=== PATIENT | male | born 1940 | race Native Hawaiian/Other Pacific Islander ===

== ENCOUNTER 2016-11-30 22:30 | Emergency (ER) | payer OTHER ==
[~2016-11-30] VITALS: Ht 177.8 cm; Wt 129.3 kg
[2016-11-30] MEDS ORDERED: LIPITOR40 MG PO (23:14)
[2016-11-30] MEDS ORDERED: AMLO2.5T PO (23:15)
[2016-11-30] MEDS ORDERED: ASPIRIN LOW81 MG PO (23:16)
[2016-11-30] MEDS ORDERED: CARV6.25 PO ×2 (23:16→23:18)
[2016-11-30] MEDS ORDERED: LISI20TA11 PO (23:17)
[2016-11-30] MEDS ORDERED: PROSCAR5 MG PO (23:17)
[2016-12-01 00:44] LABS: PLATELET COUNT 199 K/uL (142-355)
[2016-12-01 00:50] LABS: POTASSIUM 3.1 mmol/L (3.6-5.2); SODIUM 140 mmol/L (136-145)
[2016-12-01 02:39] VITALS: BP 175/98; TEMP 98.5
== END 2016-12-01 02:40 | disposition home or self-care (01) ==
LOC: ED 22:30
DX: L03.115 Cellulitis of right lower limb (principal); I89.0 Lymphedema, not elsewhere classified
CPT/HCPCS: 36415; 80053; 81000; 84550; 85027; 87040; 96372; 99284; J0696

== ENCOUNTER 2017-01-18 18:54 | Emergency (ER) | payer OTHER ==
[~2017-01-18] VITALS: Ht 177.8 cm; Wt 129.3 kg
[~2017-01-18 18:54] MED LIST: AMLO2.5T PO; ASPIRIN LOW81 MG PO; CARV6.25 PO; LIPITOR40 MG PO; LISI20TA11 PO; PROSCAR5 MG PO
[2017-01-18 19:33] LABS: PLATELET COUNT 179 K/uL (142-355)
[2017-01-18 19:40] LABS: POTASSIUM 4.5 mmol/L (3.6-5.2); SODIUM 132 mmol/L (136-145)
[2017-01-18 20:10] VITALS: BP 152/71; TEMP 98
== END 2017-01-18 20:10 | disposition short-term general hospital (02) ==
LOC: ED 18:54
DX: I21.19 ST elevation (STEMI) myocardial infarction involving other coronary artery of inferior wall (principal); E11.9 Type 2 diabetes mellitus without complications
CPT/HCPCS: 36415; 51702; 80053; 82550; 83036; 83880; 84484; 85027; 85610; 93005; 96374; 96375; 99285; J2270; J2930

== ENCOUNTER 2018-11-29 01:18 | Inpatient (IN) | payer OTHER ==
[~2018-11-29] VITALS: Ht 177.8 cm; Wt 121.3 kg
[2018-11-29 01:39] VITALS: BP 179/71; TEMP 98.1
[2018-11-29 02:29] LABS: PLATELET COUNT 202 K/uL (142-355)
[2018-11-29 03:06] LABS: POTASSIUM 3.4 mmol/L (3.6-5.2)
[2018-11-29 05:17] VITALS: BP 162/69; TEMP 97.9; Ht 177.8 cm; Wt 121.3 kg
[2018-11-29 08:11] VITALS: BP 179/72; TEMP 97.6
[2018-11-29] MEDS ORDERED: IPRAAER INH (09:47)
[2018-11-29] MEDS ORDERED: OMEPRAZOLE20 M1 PO (09:48)
[2018-11-29] MEDS ORDERED: BUMETANIDE1 MG PO (09:49)
[2018-11-29 12:05] VITALS: BP 154/77; TEMP 98.1
[2018-11-29 12:13] LABS: POTASSIUM 3.6 mmol/L (3.6-5.2)
[2018-11-29 16:00] VITALS: BP 161/70; TEMP 98.2
== END 2018-11-29 19:57 | disposition short-term general hospital (02) | DRG 291 ==
LOC: ED 01:18 → MED/SURG 03:25
PROVIDERS: ADMIT Internal Medicine
DX: I13.0 Hypertensive heart and chronic kidney disease with heart failure and stage 1 through stage 4 chronic kidney disease, or unspecified chronic kidney disease (principal); I50.33 Acute on chronic diastolic (congestive) heart failure; E11.22 Type 2 diabetes mellitus with diabetic chronic kidney disease; N18.3 Chronic kidney disease, stage 3 (moderate); E78.49 Other hyperlipidemia; E83.42 Hypomagnesemia; N40.0 Benign prostatic hyperplasia without lower urinary tract symptoms; E87.6 Hypokalemia
CPT/HCPCS: 36415; 36600; 80053; 81000; 82550; 82553; 82805; 83036; 83605; 83615; 83735; 83880; 84443; 84484; 85027; 93005; 94760; 96374; 99284; J1650; J1940; J3475

== ENCOUNTER 2018-11-29 19:55 | Outpatient (CLI) | payer OTHER ==
[~2018-11-29 19:55] MED LIST changes: +BUMETANIDE1 MG PO; +IPRAAER INH; +OMEPRAZOLE20 M1 PO
== END 2018-11-29 20:44 | disposition short-term general hospital (02) ==
LOC: AMB 19:55
DX: I13.0 Hypertensive heart and chronic kidney disease with heart failure and stage 1 through stage 4 chronic kidney disease, or unspecified chronic kidney disease (principal); I50.33 Acute on chronic diastolic (congestive) heart failure; E11.22 Type 2 diabetes mellitus with diabetic chronic kidney disease; N18.3 Chronic kidney disease, stage 3 (moderate); E78.49 Other hyperlipidemia; E83.42 Hypomagnesemia; N40.0 Benign prostatic hyperplasia without lower urinary tract symptoms; E87.6 Hypokalemia
CPT/HCPCS: A0425; A0427

== ENCOUNTER 2019-02-05 22:42 | Outpatient (CLI) | payer OTHER ==
[2019-02-06 09:35] LABS: POTASSIUM 3.7 mmol/L (3.6-5.2)
== END 2019-02-05 23:40 | disposition home or self-care (01) ==
LOC: LAB 22:42
PROVIDERS: Internal Medicine
DX: J44.9 Chronic obstructive pulmonary disease, unspecified (principal); J45.998 Other asthma; I48.1 Persistent atrial fibrillation; I50.22 Chronic systolic (congestive) heart failure
CPT/HCPCS: 80048; 83735

== ENCOUNTER 2019-02-14 18:22 | Outpatient (CLI) | payer OTHER ==
[2019-02-14] MEDS ORDERED: CARV25TA PO (19:00)
[2019-02-14] MEDS ORDERED: ELIQUIS5 MG PO (19:00)
[2019-02-14] MEDS ORDERED: AMLODIPINE BESYLATE PO (19:00)
[2019-02-14] MEDS ORDERED: MULTIVITAMI1 PO (19:01)
[2019-02-14] MEDS ORDERED: HUMALOG KW100 UNIT/M SC (19:03)
== END 2019-02-14 18:30 | disposition short-term general hospital (02) ==
LOC: AMB 18:22
DX: R06.02 Shortness of breath (principal)
CPT/HCPCS: A0425; A0427

== ENCOUNTER 2019-02-14 18:36 | Emergency (ER) | payer OTHER ==
[~2019-02-14] VITALS: Ht 177.8 cm; Wt 121.1 kg
[2019-02-14 18:38] VITALS: TEMP 98
[2019-02-14] MEDS ORDERED: AMLODIPINE BESYLATE PO (19:00)
[2019-02-14] MEDS ORDERED: ELIQUIS5 MG PO (19:00)
[2019-02-14] MEDS ORDERED: CARV25TA PO (19:00)
[2019-02-14] MEDS ORDERED: MULTIVITAMI1 PO (19:01)
[2019-02-14] MEDS ORDERED: HUMALOG KW100 UNIT/M SC (19:03)
[2019-02-14 19:18] LABS: PLATELET COUNT 144 K/uL (142-355)
[2019-02-14 21:20] VITALS: BP 132/70
== END 2019-02-14 21:59 | disposition short-term general hospital (02) ==
LOC: ED 18:36
PROVIDERS: Emergency Medicine
DX: I50.9 Heart failure, unspecified (principal); J18.8 Other pneumonia, unspecified organism
CPT/HCPCS: 36415; 80053; 82550; 83605; 83735; 83880; 84484; 85027; 87040; 93005; 94664; 96365; 96375; 99285; J1940; J3475

== ENCOUNTER 2019-02-14 22:03 | Outpatient (CLI) | payer OTHER ==
[~2019-02-14 22:03] MED LIST changes: +AMLODIPINE BESYLATE PO; +CARV25TA PO; +ELIQUIS5 MG PO; +HUMALOG KW100 UNIT/M SC; +MULTIVITAMI1 PO
== END 2019-02-14 22:45 | disposition short-term general hospital (02) ==
LOC: AMB 22:03
DX: I50.9 Heart failure, unspecified (principal); J16.8 Pneumonia due to other specified infectious organisms
CPT/HCPCS: A0425; A0427

== ENCOUNTER 2019-04-07 12:23 | Outpatient (CLI) | payer OTHER ==
[2019-04-07 12:56] LABS: PLATELET COUNT 201 K/uL (142-355)
[2019-04-07 13:06] LABS: POTASSIUM 2.6 mmol/L (3.6-5.2)
== END 2019-04-07 19:19 | disposition home or self-care (01) ==
LOC: LABW 12:23
PROVIDERS: Internal Medicine
DX: I10 Essential (primary) hypertension (principal); E78.49 Other hyperlipidemia; E11.9 Type 2 diabetes mellitus without complications
CPT/HCPCS: 36415; 80053; 80061; 81000; 83036; 84439; 84443; 85027

== ENCOUNTER 2019-04-28 11:38 | Outpatient (CLI) | payer OTHER ==
[2019-04-28 11:54] LABS: POTASSIUM 2.9 mmol/L (3.6-5.2)
== END 2019-04-28 23:42 | disposition home or self-care (01) ==
LOC: LAB 11:38
PROVIDERS: Internal Medicine
DX: J44.1 Chronic obstructive pulmonary disease with (acute) exacerbation (principal); I13.0 Hypertensive heart and chronic kidney disease with heart failure and stage 1 through stage 4 chronic kidney disease, or unspecified chronic kidney disease; I50.9 Heart failure, unspecified
CPT/HCPCS: 80048; 83735

== ENCOUNTER 2019-06-29 11:47 | Outpatient (CLI) | payer OTHER | END 2019-06-29 11:54 | disposition short-term general hospital (02) | LOC: AMB 11:47 | DX: R05 Cough (principal); R09.89 Other specified symptoms and signs involving the circulatory and respiratory systems | CPT/HCPCS: A0425; A0429 ==

== ENCOUNTER 2019-06-29 11:59 | Emergency (ER) | payer OTHER ==
[~2019-06-29] VITALS: Ht 177.8 cm; Wt 109.3 kg
[2019-06-29 12:22] LABS: PLATELET COUNT 221 K/uL (142-355)
[2019-06-29 12:49] LABS: PARTIAL THROMBOPLASTIN TIME 28.8 SECONDS (24.5-33.6)
[2019-06-29 12:58] LABS: POTASSIUM 2.3 mmol/L (3.6-5.2)
[2019-06-29 15:20] VITALS: BP 125/65; TEMP 98.1
== END 2019-06-29 15:25 | disposition home or self-care (01) ==
LOC: ED 11:59
PROVIDERS: Hospitalist
DX: J40 Bronchitis, not specified as acute or chronic (principal); I50.9 Heart failure, unspecified; E87.6 Hypokalemia; I48.91 Unspecified atrial fibrillation; F17.220 Nicotine dependence, chewing tobacco, uncomplicated
CPT/HCPCS: 36415; 80053; 81000; 82550; 83880; 84484; 85027; 85610; 85730; 93005; 94664; 96365; 96375; 99284; J0456; J1940; J2930

== ENCOUNTER 2020-01-23 20:13 | Emergency (ER) | payer OTHER ==
[~2020-01-23] VITALS: Ht 177.8 cm; Wt 99.8 kg
[2020-01-23 20:13] VITALS: TEMP 99.3
[2020-01-23 21:03] LABS: PLATELET COUNT 172 K/uL (142-355)
[2020-01-23 21:14] LABS: POTASSIUM 4.7 mmol/L (3.6-5.2)
[2020-01-23 23:32] VITALS: BP 119/62
== END 2020-01-23 23:37 | disposition short-term general hospital (02) ==
LOC: ED 20:13
PROVIDERS: Family Medicine
PROC: 0T9B70Z Drainage of Bladder with Drainage Device, Via Natural or Artificial Opening (ICD-10-PCS; principal; 2020-01-23)
DX: I50.9 Heart failure, unspecified (principal); R79.89 Other specified abnormal findings of blood chemistry; E11.65 Type 2 diabetes mellitus with hyperglycemia; I48.91 Unspecified atrial fibrillation; I45.19 Other right bundle-branch block
CPT/HCPCS: 51702; 80053; 81000; 82550; 83880; 84484; 85027; 87502; 93005; 96374; 99285; J1940

== ENCOUNTER 2020-03-01 17:20 | Inpatient (IN) | payer OTHER ==
[~2020-03-01] VITALS: Ht 177.8 cm; Wt 93.1 kg
[2020-03-01 17:20] VITALS: BP 145/69; TEMP 103.1
[2020-03-01 18:23] VITALS: TEMP 100.5
[2020-03-01 18:23] LABS: PLATELET COUNT 153 K/uL (142-355)
[2020-03-01 18:27] LABS: POTASSIUM 3.7 mmol/L (3.6-5.2); SODIUM 137 mmol/L (136-145)
[2020-03-01] MEDS ORDERED: SPIRONOLACT25 MG PO (19:16)
[2020-03-01] MEDS ORDERED: K-TAB20 MEQ PO (19:17)
[2020-03-01] MEDS ORDERED: FURO40TA93 PO (19:17)
[2020-03-01] MEDS ORDERED: GUAIFENESIN200 MG PO (19:18)
[2020-03-01 19:24] VITALS: BP 129/61
[2020-03-01 22:56] VITALS: BP 128/58; TEMP 99.1; Ht 177.8 cm; Wt 93.1 kg
[2020-03-01 23:14] VITALS: BP 133/64; TEMP 98.4
[2020-03-02 04:00] VITALS: BP 129/58; TEMP 98.6
[2020-03-02 05:34] LABS: PLATELET COUNT 104 K/uL (142-355)
[2020-03-02 05:51] LABS: POTASSIUM 3.2 mmol/L (3.6-5.2)
[2020-03-02 08:00] VITALS: BP 130/55; TEMP 98.7
[2020-03-02 11:33] VITALS: BP 111/43; TEMP 98.1
[2020-03-02 16:00] VITALS: BP 128/65; TEMP 98.2
[2020-03-02 20:00] VITALS: BP 125/68; TEMP 99.2
[2020-03-03] VITALS: BP 124/52; TEMP 99
[2020-03-03 04:00] VITALS: BP 126/60; TEMP 98.9
[2020-03-03 05:56] LABS: PLATELET COUNT 103 K/uL (142-355)
[2020-03-03 06:23] LABS: POTASSIUM 3.3 mmol/L (3.6-5.2)
[2020-03-03 08:00] VITALS: BP 121/54; TEMP 98.1
[2020-03-03 12:00] VITALS: BP 115/67; TEMP 98.4
[2020-03-03 16:00] VITALS: BP 115/56; TEMP 97.3
[2020-03-03 20:00] VITALS: BP 113/62; TEMP 98.8
[2020-03-04] VITALS: BP 151/47; TEMP 98
[2020-03-04 04:00] VITALS: BP 128/68; TEMP 98.9
[2020-03-04 05:56] LABS: PLATELET COUNT 116 K/uL (142-355)
[2020-03-04 06:06] LABS: POTASSIUM 3.8 mmol/L (3.6-5.2)
[2020-03-04 08:00] VITALS: BP 106/54; TEMP 98.1
[2020-03-04 12:00] VITALS: BP 110/58; TEMP 98.2
[2020-03-04 16:00] VITALS: BP 142/78; TEMP 98.4
[2020-03-04 20:00] VITALS: BP 143/72; TEMP 98.5
[2020-03-05 00:04] VITALS: BP 141/72; TEMP 97.2
[2020-03-05 04:00] VITALS: BP 133/82; TEMP 98.4
[2020-03-05 08:00] VITALS: BP 162/84; TEMP 98.4
[2020-03-05 12:00] VITALS: BP 111/69; TEMP 98.4
[2020-03-05 16:00] VITALS: BP 108/66; TEMP 98.5
[2020-03-05 20:19] VITALS: BP 139/65; TEMP 98.6
[2020-03-06 00:12] VITALS: BP 123/56; TEMP 98.5
[2020-03-06 04:20] VITALS: BP 114/48; TEMP 98.7
[2020-03-06 08:00] VITALS: BP 134/65; TEMP 98.1
[2020-03-06 09:58] LABS: PLATELET COUNT 166 K/uL (142-355)
[2020-03-06 10:10] LABS: POTASSIUM 4.3 mmol/L (3.6-5.2)
[2020-03-06 12:00] VITALS: BP 130/52; TEMP 98.6
[2020-03-06 16:00] VITALS: BP 126/54; TEMP 98.6
[2020-03-06 20:00] VITALS: BP 129/66; TEMP 98.7
[2020-03-07] VITALS: BP 117/61; TEMP 98.2
[2020-03-07 04:00] VITALS: BP 122/66; TEMP 98.1
[2020-03-07 06:01] LABS: POTASSIUM 3.5 mmol/L (3.6-5.2)
[2020-03-07 06:18] LABS: PLATELET COUNT 133 K/uL (142-355)
[2020-03-07 08:10] VITALS: BP 144/57; TEMP 98.3
[2020-03-07 12:00] VITALS: BP 115/60; TEMP 98.2
[2020-03-07 16:00] VITALS: BP 129/65; TEMP 97.8
[2020-03-07 20:05] VITALS: BP 137/55; TEMP 98
[2020-03-08 00:14] VITALS: BP 114/60; TEMP 97.8
[2020-03-08 04:07] VITALS: BP 120/66; TEMP 98.3
[2020-03-08 07:36] LABS: POTASSIUM 3.7 mmol/L (3.6-5.2)
[2020-03-08 07:44] LABS: PLATELET COUNT 150 K/uL (142-355)
[2020-03-08 08:00] VITALS: BP 127/63; TEMP 97.9
[2020-03-08 12:00] VITALS: BP 135/61; TEMP 98
== END 2020-03-08 13:40 | disposition swing bed (61) | DRG 194 ==
LOC: ED 17:20 → MED/SURG 19:20
PROVIDERS: Family Medicine; Internal Medicine Endocrinology, Diabetes & Metabolism; ADMIT Internal Medicine
DX: J18.8 Other pneumonia, unspecified organism (principal); R04.2 Hemoptysis; I50.40 Unspecified combined systolic (congestive) and diastolic (congestive) heart failure; E87.6 Hypokalemia; K21.9 Gastro-esophageal reflux disease without esophagitis; I25.10 Atherosclerotic heart disease of native coronary artery without angina pectoris; I48.0 Paroxysmal atrial fibrillation; E11.9 Type 2 diabetes mellitus without complications; I11.0 Hypertensive heart disease with heart failure; W18.39XA Other fall on same level, initial encounter; Y92.238 Other place in hospital as the place of occurrence of the external cause
CPT/HCPCS: 36415; 36600; 80048; 80053; 81000; 82550; 82553; 82805; 83605; 84484; 85027; 87040; 87070; 87205; 87502; 87635; 87651; 93005; 94640; 94664; 94668; 94760; 99283; J0456; J0696; J1815; U0002

== ENCOUNTER 2020-03-08 15:00 | Inpatient (IN) | payer OTHER ==
[~2020-03-08] VITALS: Ht 177.8 cm; Wt 84.4 kg
[~2020-03-08 15:00] MED LIST changes: +FURO40TA93 PO; +GUAIFENESIN200 MG PO; +K-TAB20 MEQ PO; +SPIRONOLACT25 MG PO
[2020-03-08 19:22] VITALS: BP 154/72; TEMP 98.4; Ht 177.8 cm; Wt 84.4 kg
[2020-03-08 20:00] VITALS: BP 148/69; TEMP 99.5
[2020-03-09 08:11] VITALS: BP 148/88; TEMP 97.8
[2020-03-09 19:30] VITALS: BP 141/74; TEMP 97.8
[2020-03-10 08:00] VITALS: BP 147/88; TEMP 97.5
[2020-03-10 20:00] VITALS: BP 105/54; TEMP 97.6
[2020-03-11 05:54] LABS: POTASSIUM 4.6 mmol/L (3.6-5.2)
[2020-03-11 08:00] VITALS: BP 132/57; TEMP 98.3
[2020-03-11 20:00] VITALS: BP 147/64; TEMP 98.4
[2020-03-12 08:00] VITALS: BP 155/80; TEMP 98
[2020-03-12 20:34] VITALS: BP 133/62; TEMP 98
[2020-03-13 08:00] VITALS: BP 127/62; TEMP 97.6
[2020-03-13 21:21] VITALS: BP 125/68; TEMP 98.3
[2020-03-14 08:00] VITALS: BP 112/48; TEMP 98
[2020-03-14 14:59] LABS: POTASSIUM 4.9 mmol/L (3.6-5.2)
[2020-03-14 20:39] VITALS: BP 136/64; TEMP 97.8
[2020-03-15 08:00] VITALS: BP 129/57; TEMP 98
[2020-03-15 20:00] VITALS: BP 111/66; TEMP 98.4
[2020-03-16 08:00] VITALS: BP 102/63; TEMP 98.1
[2020-03-17 08:00] VITALS: BP 115/57; TEMP 97.9
[2020-03-17 20:00] VITALS: BP 87/45; TEMP 98.8
[2020-03-18 08:00] VITALS: BP 114/32; TEMP 98.8
[2020-03-18 08:31] VITALS: BP 114/32; TEMP 98.8
[2020-03-18 19:39] VITALS: BP 108/56; TEMP 98.3
[2020-03-19 08:00] VITALS: BP 113/48; TEMP 98.2
== END 2020-03-19 13:50 | disposition home or self-care (01) | DRG 947 ==
LOC: MED/SURG 15:00
PROVIDERS: ADMIT Internal Medicine
DX: R53.1 Weakness (principal); J18.8 Other pneumonia, unspecified organism; I50.33 Acute on chronic diastolic (congestive) heart failure; I13.0 Hypertensive heart and chronic kidney disease with heart failure and stage 1 through stage 4 chronic kidney disease, or unspecified chronic kidney disease; R04.2 Hemoptysis; R62.7 Adult failure to thrive; R26.89 Other abnormalities of gait and mobility; E87.6 Hypokalemia; K21.9 Gastro-esophageal reflux disease without esophagitis; I25.10 Atherosclerotic heart disease of native coronary artery without angina pectoris; I48.0 Paroxysmal atrial fibrillation; Z79.01 Long term (current) use of anticoagulants; N40.0 Benign prostatic hyperplasia without lower urinary tract symptoms; E11.22 Type 2 diabetes mellitus with diabetic chronic kidney disease; N18.3 Chronic kidney disease, stage 3 (moderate); Z95.1 Presence of aortocoronary bypass graft; Z91.81 History of falling
CPT/HCPCS: 80048; 87081; 94640; 94664; 94760

== ENCOUNTER 2020-07-10 20:11 | Emergency (ER) | payer OTHER ==
[~2020-07-10] VITALS: Ht 177.8 cm; Wt 98.0 kg
[2020-07-10 21:01] LABS: PLATELET COUNT 169 K/uL (142-355)
[2020-07-10 21:06] LABS: POTASSIUM 4.4 mmol/L (3.6-5.2)
[2020-07-10 21:18] LABS: PARTIAL THROMBOPLASTIN TIME 28.2 SECONDS (24.5-33.6)
[2020-07-10 21:25] VITALS: BP 122/58; TEMP 98.8
== END 2020-07-10 21:38 | disposition home or self-care (01) ==
LOC: ED 20:11
PROVIDERS: Hospitalist
DX: R09.89 Other specified symptoms and signs involving the circulatory and respiratory systems (principal); R07.0 Pain in throat; I50.9 Heart failure, unspecified
CPT/HCPCS: 36415; 80048; 85027; 85610; 85730; 96372; 96374; 99284; J1610; J2765

== ENCOUNTER 2020-07-12 17:38 | Emergency (ER) | payer OTHER ==
[~2020-07-12] VITALS: Ht 177.8 cm; Wt 97.5 kg
[2020-07-12 21:40] VITALS: BP 155/88; TEMP 98.6
== END 2020-07-12 21:40 | disposition home or self-care (01) ==
LOC: ED 17:38
DX: R09.89 Other specified symptoms and signs involving the circulatory and respiratory systems (principal); K20.8 Other esophagitis
CPT/HCPCS: 96374; 96375; 99284; J1610; J2765

== ENCOUNTER 2020-08-08 04:15 | Emergency (ER) | payer OTHER ==
[~2020-08-08] VITALS: Ht 177.8 cm; Wt 100.7 kg
[2020-08-08 04:55] VITALS: BP 144/71; TEMP 98.4
== END 2020-08-08 04:55 | disposition home or self-care (01) ==
LOC: ED 04:15
DX: B35.4 Tinea corporis (principal)
CPT/HCPCS: 99281

== ENCOUNTER 2021-03-31 18:50 | Emergency (ER) | payer OTHER ==
[~2021-03-31] VITALS: Ht 177.8 cm; Wt 100.7 kg
[2021-03-31 19:13] VITALS: TEMP 98.1
[2021-03-31 19:13] LABS: PLATELET COUNT 280 K/uL (142-355)
[2021-03-31 19:22] LABS: POTASSIUM 3.7 mmol/L (3.6-5.2)
[2021-03-31 20:30] VITALS: BP 138/110
== END 2021-03-31 20:55 | disposition short-term general hospital (02) ==
LOC: ED 18:50
PROVIDERS: Family Medicine
PROC: 0T9B70Z Drainage of Bladder with Drainage Device, Via Natural or Artificial Opening (ICD-10-PCS; principal; 2021-03-31)
DX: I21.19 ST elevation (STEMI) myocardial infarction involving other coronary artery of inferior wall (principal); I50.9 Heart failure, unspecified; E87.1 Hypo-osmolality and hyponatremia; E11.65 Type 2 diabetes mellitus with hyperglycemia; Z79.4 Long term (current) use of insulin; Z11.52 Encounter for screening for COVID-19
CPT/HCPCS: 36415; 36600; 51702; 80053; 81000; 82550; 82553; 82805; 83605; 83880; 84484; 85027; 87040; 87635; 93005; 94664; 94760; 96360; 96375; 99285; J1815; J1940; J2930; U0003

== ENCOUNTER 2021-07-21 21:51 | Emergency (ER) | payer OTHER ==
[~2021-07-21] VITALS: Ht 177.8 cm; Wt 90.7 kg
[2021-07-21 22:00] VITALS: TEMP 99.3
[2021-07-21 22:57] LABS: PLATELET COUNT 184 K/uL (142-355)
[2021-07-21 23:08] LABS: POTASSIUM 3.4 mmol/L (3.6-5.2); SODIUM 147 mmol/L (136-145)
[2021-07-22 02:00] VITALS: BP 164/79
== END 2021-07-22 02:55 | disposition home or self-care (01) ==
LOC: ED 21:51
PROVIDERS: Hospitalist
DX: E11.43 Type 2 diabetes mellitus with diabetic autonomic (poly)neuropathy (principal); K31.84 Gastroparesis; R11.2 Nausea with vomiting, unspecified; E11.649 Type 2 diabetes mellitus with hypoglycemia without coma; I50.9 Heart failure, unspecified
CPT/HCPCS: 36415; 80053; 80320; 82550; 82948; 83880; 84484; 85027; 93005; 96374; 96375; 99284; J1940; J2405; J7060

== ENCOUNTER 2021-11-16 13:50 | Inpatient (IN) | payer OTHER ==
[~2021-11-16] VITALS: Ht 177.8 cm; Wt 92.6 kg
[2021-11-16] VITALS (12 sets, daily range): BP systolic 117–163; BP diastolic 55–96; TEMP 97.1–97.8
[2021-11-16 14:06] LABS: PLATELET COUNT 238 K/uL (142-355)
[2021-11-16 14:18] LABS: POTASSIUM 3.8 mmol/L (3.6-5.2)
[2021-11-16 14:35] LABS: PARTIAL THROMBOPLASTIN TIME 27.4 SECONDS (24.5-33.6)
[2021-11-17] VITALS (25 sets, daily range): BP systolic 114–157; BP diastolic 49–110; TEMP 100.3
[2021-11-17 12:33] LABS: PLATELET COUNT 182 K/uL (142-355)
[2021-11-17 12:39] LABS: POTASSIUM 3.2 mmol/L (3.6-5.2)
[2021-11-18] VITALS (19 sets, daily range): BP systolic 101–127; BP diastolic 43–67; TEMP 97.3–102.7
[2021-11-19] VITALS (15 sets, daily range): BP systolic 117–165; BP diastolic 49–80; TEMP 97.4–98.6; Ht 177.8 cm; Wt 92.6 kg
[2021-11-19 12:34] LABS: PLATELET COUNT 118 K/uL (142-355)
[2021-11-19 12:54] LABS: POTASSIUM 3.9 mmol/L (3.6-5.2)
[2021-11-20] VITALS: BP 120/61; TEMP 98.2
[2021-11-20 04:05] VITALS: BP 147/55; TEMP 97.6
[2021-11-20 05:07] LABS: PLATELET COUNT 170 K/uL (142-355)
[2021-11-20 05:28] LABS: POTASSIUM 3.7 mmol/L (3.6-5.2)
[2021-11-20 08:00] VITALS: BP 142/70; TEMP 98.3
[2021-11-20 12:00] VITALS: BP 148/83; TEMP 97.8
[2021-11-20 16:00] VITALS: BP 120/67; TEMP 98.5
[2021-11-20 20:00] VITALS: BP 150/76; TEMP 97.9
[2021-11-21] VITALS: BP 154/79; TEMP 97.8
[2021-11-21 04:00] VITALS: BP 159/80; TEMP 97.6
[2021-11-21 06:12] LABS: POTASSIUM 3.8 mmol/L (3.6-5.2)
[2021-11-21 08:00] VITALS: BP 165/99; TEMP 98
[2021-11-21 12:00] VITALS: BP 152/79; TEMP 96
[2021-11-21 20:00] VITALS: TEMP 97.4
[2021-11-22 00:11] VITALS: BP 112/43; TEMP 97.4
[2021-11-22 04:00] VITALS: BP 111/75
[2021-11-22 05:38] LABS: POTASSIUM 3.9 mmol/L (3.6-5.2)
[2021-11-22 05:52] LABS: PLATELET COUNT 207 K/uL (142-355)
[2021-11-22 08:00] VITALS: BP 88/73; TEMP 97.3
[2021-11-22 12:00] VITALS: BP 152/99; TEMP 98.6
[2021-11-22 16:00] VITALS: BP 161/87; TEMP 97.6
[2021-11-22 20:00] VITALS: BP 158/77; TEMP 96.7
[2021-11-23 00:05] VITALS: BP 148/74; TEMP 97.2
[2021-11-23 04:24] VITALS: BP 157/83; TEMP 96.8
[2021-11-23 08:00] VITALS: BP 134/71; TEMP 97.7
[2021-11-23 12:00] VITALS: BP 147/80; TEMP 97.6
== END 2021-11-23 16:30 | disposition home or self-care (01) | DRG 177 ==
LOC: ED 13:50 → MED/SURG 11-19 07:00
PROVIDERS: Emergency Medicine; ADMIT Internal Medicine; ATTEND Internal Medicine
DX: U07.1 COVID-19 (principal); J12.82 Pneumonia due to coronavirus disease 2019; I21.4 Non-ST elevation (NSTEMI) myocardial infarction; I13.0 Hypertensive heart and chronic kidney disease with heart failure and stage 1 through stage 4 chronic kidney disease, or unspecified chronic kidney disease; I48.0 Paroxysmal atrial fibrillation; K21.9 Gastro-esophageal reflux disease without esophagitis; N40.0 Benign prostatic hyperplasia without lower urinary tract symptoms; E11.22 Type 2 diabetes mellitus with diabetic chronic kidney disease; N18.32 Chronic kidney disease, stage 3b; I50.9 Heart failure, unspecified
CPT/HCPCS: 36415; 51702; 80053; 81000; 82947; 82948; 83880; 84484; 85027; 85610; 85730; 87088; 87635; 93005; 96365; 96366; 96372; 96375; 99285; J0132; J0456; J1100; J1630; J1644; J1650; J1815; J1940; J2060; J3490; U0003

== ENCOUNTER 2022-01-13 13:58 | Emergency (ER) | payer OTHER ==
[~2022-01-13] VITALS: Ht 177.8 cm; Wt 92.5 kg
[2022-01-13 14:07] VITALS: BP 161/95; TEMP 97.1
== END 2022-01-13 15:45 | disposition home or self-care (01) ==
LOC: ED 13:58
DX: S50.01XA Contusion of right elbow, initial encounter (principal); S50.11XA Contusion of right forearm, initial encounter; S53.491A Other sprain of right elbow, initial encounter; E11.9 Type 2 diabetes mellitus without complications; Z79.4 Long term (current) use of insulin; W18.39XA Other fall on same level, initial encounter; Y92.098 Other place in other non-institutional residence as the place of occurrence of the external cause
CPT/HCPCS: 82948; 96372; 99283; J1885